=== PATIENT | female | born 1960 | race Caucasian/White ===

== ENCOUNTER 2017-12-19 12:08 | Inpatient (IN) | payer OTHER ==
[~2017-12-19] VITALS: Ht 157.5 cm; Wt 72.9 kg
[~2017-12-19 12:08] MED LIST: AMRIX30 MG PO; AUGMENTIN875 MG PO; Advair 250/50 Diskus IH; BUSPAR5 MG PO; CIPRO500 M1 PO; CIPRO500 MG PO; CLONAZEPAM1 MG PO; CYMBALTA30 MG PO; CYMBALTA60 MG PO; DIOVAN320 MG PO; FLONASE16 G1 IH; GABAPENTIN400 MG PO; HYDROCHLOROTHIA25 MG PO; LISINOPRIL40 MG PO; Levothroid,Synthroid PO; Lopressor PO; METOPROLOL TART50 MG PO; MOTRIN800 MG PO; NAPROSYN500 MG PO; NEURONTIN400 MG PO; NEXIUM40 MG PO; NORVASC10 MG PO; NORVASC5 MG PO; PERCOCET 10-321 EACH PO; PERCOCET 10/1 TABLET PO; PERCOCET 5-3251 EACH PO; PYRIDIUM200 MG PO; Proventil,Ventolin H IH; SERTRALINE HCL100 MG PO; SYNTHROID75 MCG PO; TOPROL XL100 MG PO; VICODIN,LORT1 TABLET PO; VITAMIN D35000 UNIT PO; VITAMIN D5000 UNIT PO; ZESTRIL,PRINIVI40 MG PO; ZOLOFT50 MG PO
[2017-12-19 13:43] LABS: HEMATOCRIT 36.8 % (36.0-46.0); HEMOGLOBIN 11.9 G/DL (11.9-15.5); MCH 29.4 PG (29.0-34.0); MCHC 32.3 G/DL (30.0-36.0); MCV 90.9 FL (83-99); PLATELET COUNT 421 K/uL (156-360); RBC DIS.WIDTH-CV 14.8 % (11.8-14.6); RBC DIS.WIDTH-SD 49.3 % (39-53); RED BLOOD COUNT 4.05 M/uL (3.80-5.20)
[2017-12-19 13:53] LABS: ALBUMIN 3.6 g/dL (3.2-4.8); CHLORIDE 109 mEq/L (99-109); POTASSIUM 4.8 mEq/L (3.7-5.4); SODIUM 141 mEq/L (136-147)
[2017-12-19 13:56] LABS: GLUCOSE 166 mg/dL (70-99); TOTAL PROTEIN 7.4 g/dL (6.4-8.3)
[2017-12-19 13:58] LABS: TOTAL BILIRUBIN 0.4 mg/dL (0.0-1.0)
[2017-12-19 13:59] LABS: ALKALINE PHOSPHATASE 110 IU/L (3-129); CREATININE 5.5 mg/dL (0.6-1.3); GFR ESTIMATE (CALCULATED) 8 mL/min/
[2017-12-19 14:00] LABS: UREA NITROGEN (BUN) 38 mg/dL (9-23)
[2017-12-19 14:01] LABS: AST (GOT) 14 IU/L (2-34)
[2017-12-19 14:02] LABS: ALT (GPT) 6 IU/L (3-49)
[2017-12-19 15:27] LABS: APPEARANCE CLOUDY ((CLEAR)); BILIRUBIN NEGATIVE; BLOOD SMALL; COLOR YELLOW ((YELLOW)); GLUCOSE (STRIP) NEGATIVE; KETONES NEGATIVE; LEUKOCYTES SMALL; NITRITE NEGATIVE; PROTEIN (STRIP) 100; SPECIFIC GRAVITY 1.019 (1.000-1.030); UROBILINOGEN 0.2 MG/DL (0.2-1.0)
[2017-12-19 15:34] LABS: BACTERIA RARE /HPF; CALCIUM OXALATE CRYSTALS 2+ /HPF; EPITHELIAL CELLS RARE /HPF; HYALINE CASTS 30-40 /LPF; MUCUS TRACE /LPF; UCUL ADDED? YES; WHITE BLOOD CELLS 40-50 /HPF (0-5)
[2017-12-19 15:38] LABS: AMPHETAMINE NEGATIVE (500 ng/mL); BARBITURATES NEGATIVE (200 ng/mL); BENZODIAZEPINES NEGATIVE (150 ng/mL); BUPRENORPHINE NEGATIVE (10 ng/mL); COCAINE NEGATIVE (150 ng/mL); METHADONE NEGATIVE (200 ng/mL); METHAMPHETAMINE NEGATIVE (500 ng/mL); OPIATES (MORPHINE) NEGATIVE (100 ng/mL); OXYCODONE NEGATIVE (100 ng/mL); PHENCYCLIDINE NEGATIVE (25 ng/mL); PROPOXYPHENE NEGATIVE (300 ng/mL); THC CANNABINOIDS NEGATIVE (50 ng/mL); TRICYCLIC ANTIDEPRESSANTS PRESUMPTIVE POSITIVE (300 ng/mL)
[2017-12-19] MEDS ORDERED: SYNTHROID75 MCG PO (17:13)
[2017-12-19] MEDS ORDERED: PERCOCET 7.51 TABLET PO (17:14)
[2017-12-19] MEDS ORDERED: NEURONTIN300 MG PO (17:14)
[2017-12-19] MEDS ORDERED: LOPRESSOR50 MG PO (17:14)
[2017-12-19] MEDS ORDERED: PRILOSEC20 MG PO (17:15)
[2017-12-19] MEDS ORDERED: B-121000 MC2 PO (17:15)
[2017-12-19] MEDS ORDERED: SINGULAIR10 MG PO (17:15)
[2017-12-19] MEDS ORDERED: LASIX20 MG PO (17:15)
[2017-12-19 17:57] LABS: C DIFF TOXIN NEGATIVE (NEGATIVE)
[2017-12-19 20:29] VITALS: BP 139/84
[2017-12-19 20:45] VITALS: BP 115/67
[2017-12-19 21:00] VITALS: BP 122/77
[2017-12-19 22:00] VITALS: BP 99/50
[2017-12-19 22:46] LABS: BAND NEUTROPHILS 7.8 % (0-8.0); LYMPHOCYTES 1.8 % (15.0-45.0); MONOCYTES 2.6 % (0-9.0); PLAT.SUFFICIENCY ADEQUATE; POIKILOCYTOSIS 3+; SCHISTOCYTES 1+; SEG.NEUTROPHILS 87.8 % (46.0-76.0)
[2017-12-19 23:00] VITALS: BP 113/57
[2017-12-20] VITALS (26 sets, daily range): BP systolic 83–158; BP diastolic 45–89
[2017-12-20 05:40] LABS: HEMATOCRIT 31.9 % (36.0-46.0); MCH 29.4 PG (29.0-34.0); MCHC 31.3 G/DL (30.0-36.0); MCV 93.8 FL (83-99); NRBC (%) 0.1 /100 WBC (0-0); PLATELET COUNT 387 K/uL (156-360); RBC DIS.WIDTH-CV 15.1 % (11.8-14.6); RBC DIS.WIDTH-SD 52.6 % (39-53); WHITE BLOOD COUNT 19.2 K/uL (4.1-10.2)
[2017-12-20 06:22] LABS: ALBUMIN 3.2 G/DL (3.2-4.8); ALKALINE PHOSPHATASE 86 IU/L (3-129); ALT (GPT) 4 IU/L (3-49); AST (GOT) 8 IU/L (2-34); CHLORIDE 117 MEQ/L (99-109); CREATININE 2.4 MG/DL (0.6-1.3); GFR ESTIMATE (CALCULATED) 22 mL/min/; GLUCOSE 91 mg/dL (70-99); POTASSIUM 3.5 MEQ/L (3.7-5.4); SODIUM 144 MEQ/L (136-147); TOTAL BILIRUBIN 0.3 MG/DL (0.0-1.0); TOTAL PROTEIN 6.1 G/DL (6.4-8.3); UREA NITROGEN (BUN) 32 mg/dL (9-23)
[2017-12-21] VITALS (18 sets, daily range): BP systolic 128–159; BP diastolic 66–102
[2017-12-21 05:19] LABS: BASOPHIL (%) 0.4 % (0-1); EOSINOPHIL COUNT 0.2 K/uL (0-0.3); HEMATOCRIT 29.3 % (36.0-46.0); HEMOGLOBIN 9.3 G/DL (11.9-15.5); IMMATURE GRANULOCYTE (%) 0.7 % (0.0-0.7); LYMPHOCYTE (%) 20.8 % (15-42); MCH 28.2 PG (29.0-34.0); MCHC 31.7 G/DL (30.0-36.0); MONOCYTE (%) 8.5 % (3-12); MONOCYTE COUNT 0.8 K/uL (0-0.8); NEUTROPHIL (%) 67.6 % (45-76); NEUTROPHIL COUNT 6.6 K/uL (1.8-6.4); PLATELET COUNT 344 K/uL (156-360); WHITE BLOOD COUNT 9.8 K/uL (4.1-10.2)
[2017-12-21 05:23] LABS: MCV 88.8 FL (83-99)
[2017-12-21 05:33] LABS: CHLORIDE 117 MEQ/L (99-109); GFR ESTIMATE (CALCULATED) 54 mL/min/; GLUCOSE 98 mg/dL (70-99); MAGNESIUM 1.3 mg/dl (1.3-2.7); PHOSPHORUS 2.6 mg/dL (2.5-4.9); POTASSIUM 3.1 MEQ/L (3.7-5.4); SODIUM 142 MEQ/L (136-147); UREA NITROGEN (BUN) 15 mg/dL (9-23)
[2017-12-21 05:34] LABS: CREATININE 1.1 MG/DL (0.6-1.3)
[2017-12-22 00:25] VITALS: BP 160/81
[2017-12-22 03:20] VITALS: BP 144/85
[2017-12-22 05:53] LABS: BASOPHIL (%) 0.6 % (0-1); BASOPHIL COUNT 0.1 K/uL (0-0.1); EOSINOPHIL (%) 2.8 % (0-5); EOSINOPHIL COUNT 0.3 K/uL (0-0.3); HEMATOCRIT 29.5 % (36.0-46.0); HEMOGLOBIN 9.6 G/DL (11.9-15.5); IMMATURE GRANULOCYTE (%) 0.5 % (0.0-0.7); LYMPHOCYTE (%) 23.2 % (15-42); LYMPHOCYTE COUNT 2.3 K/uL (1.0-2.8); MCH 28.7 PG (29.0-34.0); MCHC 32.5 G/DL (30.0-36.0); MCV 88.3 FL (83-99); MONOCYTE (%) 8.7 % (3-12); MONOCYTE COUNT 0.9 K/uL (0-0.8); NEUTROPHIL (%) 64.2 % (45-76); NEUTROPHIL COUNT 6.5 K/uL (1.8-6.4); PLATELET COUNT 325 K/uL (156-360); RBC DIS.WIDTH-CV 14.9 % (11.8-14.6); RBC DIS.WIDTH-SD 48.5 % (39-53); RED BLOOD COUNT 3.34 M/uL (3.80-5.20); WHITE BLOOD COUNT 10.1 K/uL (4.1-10.2)
[2017-12-22 06:43] LABS: CHLORIDE 115 MEQ/L (99-109); CREATININE 0.8 MG/DL (0.6-1.3); GFR ESTIMATE (CALCULATED) > 59 mL/min/; GLUCOSE 93 mg/dL (70-99); SODIUM 143 MEQ/L (136-147); UREA NITROGEN (BUN) 11 mg/dL (9-23)
[2017-12-22 07:12] VITALS: BP 136/79
[2017-12-22 08:44] LABS: MAGNESIUM 1.5 mg/dl (1.3-2.7)
[2017-12-22 11:10] VITALS: BP 154/76
[2017-12-22] MEDS ORDERED: TOPAMAX100 MG PO ×2 (14:31→14:32)
[2017-12-22 15:23] VITALS: BP 127/70
[2017-12-22 20:00] VITALS: BP 126/66
[2017-12-23] VITALS: BP 141/87
[2017-12-23 03:36] VITALS: BP 143/81
[2017-12-23 06:42] LABS: BASOPHIL (%) 0.6 % (0-1); BASOPHIL COUNT 0.1 K/uL (0-0.1); EOSINOPHIL (%) 2.9 % (0-5); EOSINOPHIL COUNT 0.3 K/uL (0-0.3); HEMATOCRIT 31.1 % (36.0-46.0); HEMOGLOBIN 10.2 G/DL (11.9-15.5); IMMATURE GRANULOCYTE (%) 0.5 % (0.0-0.7); LYMPHOCYTE COUNT 2.2 K/uL (1.0-2.8); MCH 28.6 PG (29.0-34.0); MCHC 32.8 G/DL (30.0-36.0); MCV 87.1 FL (83-99); MONOCYTE (%) 9.6 % (3-12); MONOCYTE COUNT 0.9 K/uL (0-0.8); NEUTROPHIL (%) 63.4 % (45-76); NEUTROPHIL COUNT 6.1 K/uL (1.8-6.4); PLATELET COUNT 372 K/uL (156-360); RBC DIS.WIDTH-CV 14.6 % (11.8-14.6); RED BLOOD COUNT 3.57 M/uL (3.80-5.20); WHITE BLOOD COUNT 9.6 K/uL (4.1-10.2)
[2017-12-23 07:05] LABS: ALBUMIN 3.1 G/DL (3.2-4.8); ALKALINE PHOSPHATASE 90 IU/L (3-129); ALT (GPT) 5 IU/L (3-49); AST (GOT) 9 IU/L (2-34); CHLORIDE 108 MEQ/L (99-109); CREATININE 0.8 MG/DL (0.6-1.3); GFR ESTIMATE (CALCULATED) > 59 mL/min/; GLUCOSE 95 mg/dL (70-99); SODIUM 139 MEQ/L (136-147); TOTAL BILIRUBIN 0.3 MG/DL (0.0-1.0); TOTAL PROTEIN 5.9 G/DL (6.4-8.3); UREA NITROGEN (BUN) 16 mg/dL (9-23)
[2017-12-23 07:11] VITALS: BP 131/69
[2017-12-23] MEDS ORDERED: KEFLEX500 MG PO (09:06)
== END 2017-12-23 10:02 | disposition home or self-care (01) | DRG 871 ==
LOC: EME 12:08 → 4WEST 15:49 → EDOF 15:49 → ENRESERV 15:52 → EDOF 16:11 → ENRESERV 16:11 → EDOF 16:11 → ENRESERV 17:24 → 4WEST 20:23 → ENRESERV 12-21 15:14 → 5SOUTH 12-21 17:09
PROVIDERS: Emergency Medicine; Hospitalist; Internal Medicine; Internal Medicine Critical Care Medicine
DX: A41.9 Sepsis, unspecified organism (principal); R65.20 Severe sepsis without septic shock; A08.4 Viral intestinal infection, unspecified; N17.0 Acute kidney failure with tubular necrosis; T50.2X5A Adverse effect of carbonic-anhydrase inhibitors, benzothiadiazides and other diuretics, initial encounter; T46.4X5A Adverse effect of angiotensin-converting-enzyme inhibitors, initial encounter; E86.0 Dehydration; E87.2 Acidosis; N39.0 Urinary tract infection, site not specified; B96.20 Unspecified Escherichia coli [E. coli] as the cause of diseases classified elsewhere; E87.6 Hypokalemia; I10 Essential (primary) hypertension; E78.5 Hyperlipidemia, unspecified; F32.9 Major depressive disorder, single episode, unspecified; G40.909 Epilepsy, unspecified, not intractable, without status epilepticus; N20.2 Calculus of kidney with calculus of ureter; K21.9 Gastro-esophageal reflux disease without esophagitis; E03.9 Hypothyroidism, unspecified; Z88.1 Allergy status to other antibiotic agents; Z88.2 Allergy status to sulfonamides
CPT/HCPCS: 71045; 74176; 80048; 80053; 80202; 81003; 83605; 83735; 84100; 84443; 85007; 85025; 85027; 87040; 87077; 87086; 87186; 87493; 87502; 87641; 93005; 99281; 99284; J0456; J0692; J0696; J1644; J3370; J3475; J3480; J7030; J7050